=== PATIENT | female | born 1960 | race American Indian/Alaskan Native ===

== ENCOUNTER 2016-10-07 15:58 | Emergency (ER) | payer MEDICAID, MEDICARE, SELFPAY ==
[2016-10-07 16:55] VITALS: BP 156/79
[2016-10-07] MEDS ORDERED: Ketorolac 60 MG/2 ML SDV IM ONE (17:28)
[2016-10-07] MEDS ORDERED: Acetaminophen/HYDROcodone 325-5 MG Tab PO ONE (17:29)
--- NOTE | 2016-10-07 17:30 | EDM.PDOC ---
ED HPI HEADACHE COMPLAINT - General Chief Complaint: Headache Stated Complaint: HEAD PAIN Time Seen by Provider: 10/07/16 17:29 Source: Reports: Patient History Limitations: Reports: No limitations - History of Present Illness INITIAL COMMENTS - FREE TEXT/NARRATIVE: Pt arrived with a history of a headache on the top of her head. This has been a chronic problem for her. She had a garage door fall on her head and since that time she has had headaches. She has not been vomiting. Timing/Duration: Reports: hour(s): Location: Reports: other ( top of her head. ) Quality: Reports: pounding Severity: Reports: moderate, similar to past headaches Associated Symptoms: Reports: other (pt has had torodol which has helped in the past. ) - Related Data Allergies/ADRs: Allergies Allergy/AdvReac Type Severity Reaction Status Date / Time melatonin Allergy Chest Verified 05/11/16 23:43 Presssure tramadol Allergy Hives Verified 05/11/16 23:43 gabapentin AdvReac Tachycardia Verified 05/11/16 23:43 ibuprofen AdvReac Stomach Verified 05/11/16 23:43 Ache nitrofurantoin AdvReac Tachycardia Verified 05/11/16 23:43 paroxetine HCl [From Paxil] AdvReac Lethargy Verified 05/11/16 23:43 propoxyphene napsylate AdvReac Stomach Verified 05/11/16 23:43 [From Darvocet-N] Upset rofecoxib [From Vioxx] AdvReac Tachycardia Verified 05/11/16 23:43 trazodone AdvReac Depression Verified 05/11/16 23:43 Home Meds: Home Meds Aspirin [Marbin Chewable Aspirin] 81 mg PO DAILY 12/06/14 [History] Losartan [Cozaar] 50 mg PO DAILY 12/06/14 [History] metFORMIN [Glucophage] 500 mg PO BID 12/06/14 [History] Acetaminophen [Tylenol Extra Strength] 1,000 mg PO Q6H PRN 01/10/16 [History] Cyclobenzaprine [Flexeril] 10 mg PO TID #15 tab 05/11/16 [Rx] Past Medical History HEENT History: Reports: Allergic rhinitis, Impaired vision Cardiovascular History: Reports: CAD, Hypertension, [place] Respiratory History: Reports: Bronchitis, recurrent Gastrointestinal History: Reports: GERD Other Gastrointestinal History: DENIES GERD Genitourinary History: Reports: UTI, recurrent Other Genitourinary History: bladder lift. acute kidney injury [employer] History: Reports: Musculoskeletal History: Reports: Back pain, chronic, Fracture, Fibromyalgia, Osteoarthritis Other Musculoskeletal History: hip pain Neurological History: Reports: CVA Psychiatric History: Reports: Addiction, Anxiety, Depression, Other (see below) Other Psychiatric History: Personality disorder. adjustment disorder Endocrine/Metabolic History: Reports: Diabetes, type II, Obesity/BMI 30+ Hematologic History: Reports: None Immunologic History: Reports: None Oncologic (Cancer) History: Reports: None Dermatologic History: Reports: None - Infectious Disease History Infectious Disease History: Reports: Chicken pox, Measles - Past Surgical History Cardiovascular Surgical History: Reports: Coronary artery stent GI Surgical History: Reports: Cholecystectomy Female Surgical History: Reports: Hysterectomy, Salpingo-oophorectomy, Tubal ligation Neurological Surgical History: Reports: Lumbar spine Other Neurological Surgeries/Procedures: back surgery Other Musculoskeletal Surgeries/Procedures:: Back surgery Social & Family History - Family History Family Medical History: Noncontributory HEENT: Reports: None Cardiac: Reports: None Respiratory: Reports: None GI: Reports: None : Reports: None OBGYN: Reports: None Musculoskeletal: Reports: None Neurological: Reports: None Psychiatric: Reports: Depression Endocrine/Metabolic: Reports: None Hematologic: Reports: None Immunologic: Reports: None Dermatologic: Reports: None Oncologic: Reports: None - Tobacco Use Smoking Status *Q: Heavy Tobacco Smoker Years of Tobacco use: 40 Packs/Tins Daily: 3.5 Used Tobacco, but Quit: No Second Hand Smoke Exposure: Yes - Caffeine Use Caffeine Use: Reports: Coffee, Soda - Alcohol Use Days Per Week of Alcohol Use: 0 - Recreational Drug Use Recreational Drug Use: No Drug Use in Last 12 Months: Yes Recreational Drug Type: Reports: Marijuana/Hashish Recreational Drug Use Frequency: Socially - Living Situation & Occupation Living situation: Reports: single (lives in [place], [place].) Occupation: disabled ED ROS GENERAL - Review of Systems Review Of Systems: See Below Constitutional: Reports: no symptoms HEENT: Reports: No symptoms Respiratory: Reports: no symptoms Cardiovascular: Reports: No symptoms Endocrine: Reports: no symptoms GI/Abdominal: Reports: No symptoms : Reports: no symptoms Musculoskeletal: Reports: no symptoms Skin: Reports: no symptoms Neurological: Reports: headache Psychiatric: Reports: Anxiety - Physical Exam Exam: See Below Text/Narrative:: Pt has a headache at the top of her head. She is not vomiting. Exam Limited By: No limitations General Appearance: alert, mild distress, other (pupils are equal and reacting to lite. ) Ears: normal TMs Nose: normal inspection Throat/Mouth: Normal inspection Head Exam: atraumatic Neck: normal inspection Respiratory/Chest: no respiratory distress Cardiovascular: regular rate, rhythm GI/Abdominal: soft, non tender Neuro Exam (Abbreviated): alert, oriented, inattentive Back Exam: normal inspection Extremities: normal inspection Psychiatric: anxious Course - Vital Signs Last Recorded V/S: Last Vital Signs Temp 36.5 C 10/07/16 17:12 Pulse 89 10/07/16 17:12 Resp 16 10/07/16 17:12 BP 156/79 H 10/07/16 17:12 Pulse Ox 99 10/07/16 17:12 - Orders/Labs/Meds Meds: Medications Discontinued Medications Generic Name Dose Route Start Last Admin Trade Name Luke PRN Reason Stop Dose Admin Acetaminophen/Hydrocodone Bitart 1 tab 10/07/16 17:29 10/07/16 17:38 [place] 325-5 Mg PO 10/07/16 17:30 1 tab ONETIME ONE Administration Ketorolac Tromethamine 60 mg 10/07/16 17:28 10/07/16 17:39 Toradol IM 10/07/16 17:29 60 mg ONETIME ONE Administration - Re-Assessments/Exams Free Text/Narrative Re-Assessment/Exam: 10/07/16 17:51 Pt was given torodol 60mg im norco 5/325 po, Departure - Departure Time of Disposition: 17:52 Disposition: Home, Self-Care 01 Condition: fair Clinical Impression: Chronic headache Referrals: PCP,None [Primary Care Provider] - Forms: ED Department Discharge Care Plan Goals: cont same meds. , warm packs to the neck, rest.
== END 2016-10-07 18:09 | disposition home or self-care (01) ==
LOC: JP.ED 15:58
DX: R51 Headache (principal); I25.10 Atherosclerotic heart disease of native coronary artery without angina pectoris; I10 Essential (primary) hypertension; I25.2 Old myocardial infarction; K21.9 Gastro-esophageal reflux disease without esophagitis; F41.9 Anxiety disorder, unspecified; F32.9 Major depressive disorder, single episode, unspecified; E11.9 Type 2 diabetes mellitus without complications; E66.9 Obesity, unspecified; Z90.49 Acquired absence of other specified parts of digestive tract; Z90.710 Acquired absence of both cervix and uterus; Z98.51 Tubal ligation status; Z88.8 Allergy status to other drugs, medicaments and biological substances; Z88.6 Allergy status to analgesic agent; Z88.5 Allergy status to narcotic agent; F17.210 Nicotine dependence, cigarettes, uncomplicated; Z79.82 Long term (current) use of aspirin; Z79.84 Long term (current) use of oral hypoglycemic drugs; Z87.440 Personal history of urinary (tract) infections; Z86.73 Personal history of transient ischemic attack (TIA), and cerebral infarction without residual deficits
CPT/HCPCS: 96374; 99284; A9270; J1885; 99283

== ENCOUNTER 2016-12-09 18:47 | Emergency (ER) | payer MEDICARE ==
[2016-12-09 19:16] VITALS: BP 151/71
[2016-12-09] MEDS ORDERED: Ketorolac 60 MG/2 ML SDV IM ONE (19:18)
[2016-12-09] MEDS ORDERED: Bupivacaine 0.25%/EPINEPHrine 1:200,000 10 ML SDV INFILT ONE (19:47)
[2016-12-09] MEDS ORDERED: Bupivacaine 0.25% 10 ML SDV ONE (19:51)
[2016-12-09] MEDS ORDERED: Bupivacaine 0.25% 10 ML SDV INJECT ONE (19:59)
--- NOTE | 2016-12-09 20:21 | EDM.PDOC ---
ED HPI GENERAL MEDICAL PROBLEM - General Chief Complaint: Headache Stated Complaint: HEAD PAIN Time Seen by Provider: 12/09/16 19:05 Source of Information: Reports: Patient History Limitations: Reports: No limitations - History of Present Illness INITIAL COMMENTS - FREE TEXT/NARRATIVE: History of present illness: [56-year-old female was in the [place] ER yesterday for a headache. She was thoroughly evaluated with head CT and lab work. Nothing was found head CT was negative. This chronic problem for about a year now. She had a door fall on her head at [facility] about a year ago and since then she's complaining of chronic intractable pain in the top of her head. Her medical records reveal that she has been treated with narcotics in the past and has been diagnosed with opiate dependence and has violated opioid contracts. She is ambulatory into the emergency room and as walk she walks and appears to be in no acute distress.] Review of systems: As per history of present illness and below otherwise all systems reviewed and negative. Past medical history: As per history of present illness and as reviewed below otherwise noncontributory. Surgical history: As per history of present illness and as reviewed below otherwise noncontributory. Social history: No reported history of drug or alcohol abuse. Family history: As per history of present illness and as reviewed below otherwise noncontributory. Physical exam: HEENT: At the apex of her scalp is where she points as to where the pain is. I lately palpated in touch this spot and she broke down and began crying and weeping and has to lay down as her pain suddenly shot up to 11 out of 10 in intensity. There is no palpable mass or skin lesion present. I injected the site with 2 mL of bupivacaine with epinephrine and she experienced no pain relief. Her pupils are equal round reactive to light extraocular movements are intact TMs are clear throat is clear Lungs: Clear to auscultation, breath sounds equal bilaterally, Heart: S1S2, regular, Abdomen: Soft, nondistended, nontender. Extremities: Atraumatic, negative for cords or calf pain. Neurovascular unremarkable. Neuro: Awake, alert, oriented. Cranial nerves II through XII unremarkable. Cerebellum unremarkable. Motor and sensory unremarkable throughout. Exam nonfocal. Diagnostics: [] Therapeutics: [She was given a shot of Toradol while here as well 60 mg IM.] Impression: [Chronic intractable head pain I strongly suspect factitious disorder] Plan: [She is discharged instructed to followup with her primary care doctor. I'm not sure that she is establish with primary. She is from [place] and I recommend that she try to establish care there. she may benefit from a psychiatric evaluation.] Definitive disposition and diagnosis as appropriate pending reevaluation and review of above. Head Pain Score (Numeric/FACES): 10 - Related Data Allergies Allergy/AdvReac Type Severity Reaction Status Date / Time melatonin Allergy Chest Verified 05/11/16 23:43 Presssure tramadol Allergy Hives Verified 05/11/16 23:43 gabapentin AdvReac Tachycardia Verified 05/11/16 23:43 ibuprofen AdvReac Stomach Verified 05/11/16 23:43 Ache nitrofurantoin AdvReac Tachycardia Verified 05/11/16 23:43 paroxetine HCl [From Paxil] AdvReac Lethargy Verified 05/11/16 23:43 propoxyphene napsylate AdvReac Stomach Verified 05/11/16 23:43 [From Darvocet-N] Upset rofecoxib [From Vioxx] AdvReac Tachycardia Verified 05/11/16 23:43 trazodone AdvReac Depression Verified 05/11/16 23:43 Home Meds: Home Meds Aspirin [Marbin Chewable Aspirin] 81 mg PO DAILY 12/06/14 [History] Losartan [Cozaar] 50 mg PO DAILY 12/06/14 [History] metFORMIN [Glucophage] 500 mg PO BID 12/06/14 [History] Acetaminophen [Tylenol Extra Strength] 1,000 mg PO Q6H PRN 01/10/16 [History] Acetaminophen/oxyCODONE [Percocet 325-5 MG] 1 tab PO Q8H PRN 12/09/16 [History] Cyclobenzaprine [Flexeril] 10 mg PO TID PRN 12/09/16 [History] Etodolac 200 mg PO TID 12/09/16 [History] Lidocaine 5% [Lidoderm 5%] 1 patch TOP Q24H 12/09/16 [History] Nortriptyline 25 mg PO BEDTIME 12/09/16 [History] Phenazopyridine [Pyridium] 200 mg PO TID PRN 12/09/16 [History] Past Medical History HEENT History: Reports: Allergic rhinitis, Impaired vision Cardiovascular History: Reports: CAD, Hypertension, [place] Respiratory History: Reports: Bronchitis, recurrent Gastrointestinal History: Reports: GERD Other Gastrointestinal History: DENIES GERD Genitourinary History: Reports: UTI, recurrent Other Genitourinary History: bladder lift. acute kidney injury [employer] History: Reports: Musculoskeletal History: Reports: Back pain, chronic, Fracture, Fibromyalgia, Osteoarthritis Other Musculoskeletal History: hip pain Neurological History: Reports: CVA Psychiatric History: Reports: Addiction, Anxiety, Depression, Other (see below) Other Psychiatric History: Personality disorder. adjustment disorder Endocrine/Metabolic History: Reports: Diabetes, type II, Obesity/BMI 30+ Hematologic History: Reports: None Immunologic History: Reports: None Oncologic (Cancer) History: Reports: None Dermatologic History: Reports: None - Infectious Disease History Infectious Disease History: Reports: Chicken pox, Measles - Past Surgical History Cardiovascular Surgical History: Reports: Coronary artery stent GI Surgical History: Reports: Cholecystectomy Female Surgical History: Reports: Hysterectomy, Salpingo-oophorectomy, Tubal ligation Neurological Surgical History: Reports: Lumbar spine Other Neurological Surgeries/Procedures: back surgery Other Musculoskeletal Surgeries/Procedures:: Back surgery Social & Family History - Family History Family Medical History: Noncontributory HEENT: Reports: None Cardiac: Reports: None Respiratory: Reports: None GI: Reports: None : Reports: None OBGYN: Reports: None Musculoskeletal: Reports: None Neurological: Reports: None Psychiatric: Reports: Depression Endocrine/Metabolic: Reports: None Hematologic: Reports: None Immunologic: Reports: None Dermatologic: Reports: None Oncologic: Reports: None - Tobacco Use Smoking Status *Q: Light Tobacco Smoker Years of Tobacco use: 30 Packs/Tins Daily: 0.2 Used Tobacco, but Quit: No Second Hand Smoke Exposure: Yes - Caffeine Use Caffeine Use: Reports: Coffee, Soda - Alcohol Use Days Per Week of Alcohol Use: 0 - Recreational Drug Use Recreational Drug Use: Yes Drug Use in Last 12 Months: Yes Recreational Drug Type: Reports: Marijuana/Hashish Recreational Drug Use Frequency: Socially - Living Situation & Occupation Living situation: Reports: single (lives in [place], [place].) Occupation: disabled ED ROS GENERAL - Review of Systems Review Of Systems: ROS reveals no pertinent complaints other than HPI. ED EXAM, HEAD INJURY - Physical Exam Exam: See Below Course - Vital Signs Last Recorded V/S: Last Vital Signs Temp 37.4 C 12/09/16 19:08 Pulse 76 12/09/16 19:16 Resp 16 12/09/16 19:16 BP 151/71 H 12/09/16 19:16 Pulse Ox 98 12/09/16 19:08 - Orders/Labs/Meds Meds: Medications Discontinued Medications Generic Name Dose Route Start Last Admin Trade Name Luke PRN Reason Stop Dose Admin Bupivacaine HCl Confirm 12/09/16 19:51 12/09/16 20:00 Sensorcaine-Mpf 0.25% Administered 12/09/16 19:52 Not Given Dose 10 ml .ROUTE .STK-MED ONE Bupivacaine HCl 10 ml 12/09/16 19:59 12/09/16 20:00 Sensorcaine-Mpf 0.25% INJECT 12/09/16 20:00 10 ml ONETIME ONE Administration Bupivacaine HCl/Epinephrine Bitart 10 ml 12/09/16 19:47 12/09/16 19:59 [place] 0.25%/Epinephrine 1:200,000 INFILT 12/09/16 19:48 Not Given ONETIME ONE Ketorolac Tromethamine 60 mg 12/09/16 19:18 12/09/16 19:22 Toradol IM 12/09/16 19:19 60 mg ONETIME ONE Administration Departure - Departure Time of Disposition: 20:22 Disposition: Home, Self-Care 01 Condition: fair Clinical Impression: Factitious disorder Chronic headache Qualifiers: Headache type: unspecified Intractability: intractable Qualified Code(s): R51 - Headache - Discharge Information Forms: ED Department Discharge Additional Instructions: Please establish herself with a primary care doctor in [place] in seek there assistance in helping you with your chronic pain.
== END 2016-12-09 20:46 | disposition home or self-care (01) ==
LOC: JP.ED 18:47
DX: R51 Headache (principal); F68.10 Factitious disorder imposed on self, unspecified; F11.20 Opioid dependence, uncomplicated; F32.9 Major depressive disorder, single episode, unspecified; F17.210 Nicotine dependence, cigarettes, uncomplicated; F12.90 Cannabis use, unspecified, uncomplicated; I25.10 Atherosclerotic heart disease of native coronary artery without angina pectoris; I10 Essential (primary) hypertension; Z95.5 Presence of coronary angioplasty implant and graft; I25.2 Old myocardial infarction; K21.9 Gastro-esophageal reflux disease without esophagitis; G89.29 Other chronic pain; M54.9 Dorsalgia, unspecified; M79.7 Fibromyalgia; M19.90 Unspecified osteoarthritis, unspecified site; Z86.73 Personal history of transient ischemic attack (TIA), and cerebral infarction without residual deficits; E11.9 Type 2 diabetes mellitus without complications; Z79.84 Long term (current) use of oral hypoglycemic drugs; E66.9 Obesity, unspecified; F60.9 Personality disorder, unspecified; F43.20 Adjustment disorder, unspecified; Z79.82 Long term (current) use of aspirin; Z79.899 Other long term (current) drug therapy
CPT/HCPCS: 96372; 99283; 99284; J1885